=== PATIENT | female | born 1950 | race Caucasian/White ===

== ENCOUNTER 2018-09-08 15:53 | Inpatient (IN) | payer MEDICARE, MEDICAID ==
[~2018-09-08] VITALS: Ht 157.5 cm; Wt 96.6 kg
[2018-09-08 17:51] LABS: BASOPHILS % 0.8 % (0.0-2.0); EOSINOPHILS % 2.1 % (0.0-5.0); HEMATOCRIT. 25.1 % (36.0-48.0); HEMOGLOBIN. 7.7 g/dL (12.0-16.0); LYMPHOCYTES % 25.9 % (20.0-50.0); MEAN CORPUSCULAR HEMOGLOBIN 25.1 pg (28.0-32.0); MEAN CORPUSCULAR VOLUME 81.7 fL (81.0-99.0); MEAN PLATELET VOLUME 7.5 fl (7.4-10.4); NEUTROPHILS % 59.2 % (40.0-76.0); PLATELET 450 x1000/uL (130-400); RED BLOOD CELL COUNT 3.07 mill/uL (4.2-5.4); RED CELL DISTRIBUTION WIDTH 17.2 % (11.6-14.6)
[2018-09-08 17:54] LABS: CHLORIDE 103 mEq/L (98-107)
[2018-09-08 17:57] LABS: INR 1.1; PROTHROMBIN TIME 11.1 sec (9.1-11.1)
[2018-09-08] MEDS ORDERED: FUROSEMIDE 40MG/4ML VIAL IVP ONE (18:30)
[2018-09-08 22:13] VITALS: BP 136/76
[2018-09-08] MEDS ORDERED: LAMO200T50 MT (22:47)
[2018-09-09] VITALS: BP 119/64
[2018-09-09] MEDS ORDERED: DEXTROSE 50% WATER 50ML SYRINGE IV PRN
[2018-09-09] MEDS ORDERED: CLONIDINE 0.1MG TABLET PO PRN (00:15)
[2018-09-09] MEDS ORDERED: HYDROCODONE/ACETAMINOPHEN 5/325MG TABLET PO PRN (00:15)
[2018-09-09] MEDS ORDERED: ACETAMINOPHEN 325MG TABLET PO PRN (00:15)
[2018-09-09] MEDS ORDERED: ONDANSETRON HCL 4MG/2ML INJ IV PRN (00:15)
[2018-09-09] MEDS ORDERED: MAGN400C PO (00:42)
[2018-09-09] MEDS ORDERED: ATOR10TA69 MT (00:42)
[2018-09-09] MEDS ORDERED: DILT60TA35 PO (00:42)
[2018-09-09] MEDS ORDERED: METF-815 PO (00:42)
[2018-09-09] MEDS ORDERED: LORA-250 MT (00:42)
[2018-09-09] MEDS ORDERED: MEDICATION NOT ON FORMULARY EA (Lorazepam (Ativan) 1 TAB) MT PRN (00:45)
[2018-09-09] MEDS: LORAZEPAM 1MG TABLET PO PRN ×3 (01:15→21:30)
[2018-09-09] MEDS ORDERED: LAMO200T MT (01:24)
[2018-09-09] MEDS: LAMOTRIGINE 100MG TABLET PO SCH ×2 (02:13→21:30)
[2018-09-09 04:00] VITALS: BP 135/72
[2018-09-09] MEDS: BLOOD SUGAR DIAGNOSTIC STRIP TEST SCH ×4 (07:10→21:31)
[2018-09-09] MEDS: INSULIN LISPRO 100 UNITS/ML SUBCUT SCH ×4 (07:40→21:00)
[2018-09-09 07:44] LABS: EOSINOPHILS % 3.1 % (0.0-5.0); HEMOGLOBIN. 8.1 g/dL (12.0-16.0); LYMPHOCYTES % 18.7 % (20.0-50.0); MEAN CORPUSCULAR HEMOGLOBIN 25.4 pg (28.0-32.0); MEAN CORPUSCULAR VOLUME 81.4 fL (81.0-99.0); MEAN PLATELET VOLUME 7.7 fl (7.4-10.4); MONOCYTES % 10.8 % (2.0-8.0); NEUTROPHILS % 66.4 % (40.0-76.0); PLATELET 441 x1000/uL (130-400); RED CELL DISTRIBUTION WIDTH 17.1 % (11.6-14.6)
[2018-09-09 08:00] VITALS: BP 150/87
[2018-09-09] MEDS: FUROSEMIDE 40MG/4ML VIAL IVP SCH (09:00)
[2018-09-09 12:00] VITALS: BP 139/71
[2018-09-09 16:00] VITALS: BP 145/86
[2018-09-09] MEDS: FLUTICASONE PROPIONATE 50MCG/SPRAY BOTTLE BOTHNSTRLS SCH (17:56)
[2018-09-09 20:00] VITALS: BP 143/83
[2018-09-09] MEDS ORDERED: MEDICATION NOT ON FORMULARY EA (Lamotrigine 1 TAB) MT SCH ×2 (21:00)
[2018-09-09] MEDS: ATORVASTATIN CALCIUM 20MG TABLET PO SCH (21:30)
[2018-09-10] VITALS: BP 151/92
[2018-09-10 04:00] VITALS: BP 143/93
[2018-09-10 06:25] LABS: BASOPHILS % 0.8 % (0.0-2.0); EOSINOPHILS % 2.8 % (0.0-5.0); HEMATOCRIT. 27.1 % (36.0-48.0); HEMOGLOBIN. 8.4 g/dL (12.0-16.0); LYMPHOCYTES % 16.7 % (20.0-50.0); MEAN CORPUSCULAR HEMOGLOBIN 25.1 pg (28.0-32.0); MEAN CORPUSCULAR VOLUME 81.2 fL (81.0-99.0); MONOCYTES % 10.7 % (2.0-8.0); PLATELET 483 x1000/uL (130-400); RED BLOOD CELL COUNT 3.34 mill/uL (4.2-5.4); RED CELL DISTRIBUTION WIDTH 17.3 % (11.6-14.6)
[2018-09-10] MEDS: BLOOD SUGAR DIAGNOSTIC STRIP TEST SCH ×4 (06:39→21:51)
[2018-09-10] MEDS: INSULIN LISPRO 100 UNITS/ML SUBCUT SCH ×4 (06:39→21:51)
[2018-09-10 08:00] VITALS: BP 159/104
[2018-09-10] MEDS: FUROSEMIDE 40MG/4ML VIAL IVP SCH (09:00)
[2018-09-10] MEDS: FLUTICASONE PROPIONATE 50MCG/SPRAY BOTTLE BOTHNSTRLS SCH (09:20)
[2018-09-10] MEDS: LORAZEPAM 1MG TABLET PO PRN ×2 (09:21→21:43)
[2018-09-10 11:48] VITALS: BP 151/89
[2018-09-10 16:00] VITALS: BP 151/86
[2018-09-10] MEDS: LISINOPRIL 5MG TABLET PO SCH (17:40)
[2018-09-10 20:00] VITALS: BP 141/80
[2018-09-10] MEDS: ATORVASTATIN CALCIUM 20MG TABLET PO SCH (21:34)
[2018-09-10] MEDS: LAMOTRIGINE 100MG TABLET PO SCH (21:34)
[2018-09-10] MEDS: CARVEDILOL 3.125 MG TABLET PO SCH (21:35)
[2018-09-11] VITALS: BP 130/74
[2018-09-11 04:00] VITALS: BP 142/90
[2018-09-11] MEDS: INSULIN LISPRO 100 UNITS/ML SUBCUT SCH ×2 (07:21→11:55)
[2018-09-11] MEDS: BLOOD SUGAR DIAGNOSTIC STRIP TEST SCH ×2 (07:21→11:55)
[2018-09-11 08:00] VITALS: BP 139/82
[2018-09-11] MEDS: FUROSEMIDE 40MG/4ML VIAL IVP SCH (09:00)
[2018-09-11] MEDS: FLUTICASONE PROPIONATE 50MCG/SPRAY BOTTLE BOTHNSTRLS SCH (09:34)
[2018-09-11] MEDS: CARVEDILOL 3.125 MG TABLET PO SCH (09:34)
[2018-09-11] MEDS: LISINOPRIL 5MG TABLET PO SCH (09:35)
[2018-09-11] MEDS ORDERED: AMLODIPINE 2.5MG TABLET PO SCH (10:00)
[2018-09-11 11:36] LABS: BASOPHILS % 0.7 % (0.0-2.0); EOSINOPHILS % 3.4 % (0.0-5.0); HEMATOCRIT. 25.9 % (36.0-48.0); HEMOGLOBIN. 7.9 g/dL (12.0-16.0); MEAN CORPUSCULAR HEMOGLOBIN 24.8 pg (28.0-32.0); MEAN CORPUSCULAR VOLUME 80.9 fL (81.0-99.0); MEAN PLATELET VOLUME 7.4 fl (7.4-10.4); MONOCYTES % 11.5 % (2.0-8.0); NEUTROPHILS % 67.4 % (40.0-76.0); PLATELET 392 x1000/uL (130-400); RED CELL DISTRIBUTION WIDTH 17.1 % (11.6-14.6)
[2018-09-11 11:56] VITALS: BP 114/65
[2018-09-11 15:59] VITALS: BP 134/66
[2018-09-11 16:00] VITALS: BP 134/66
[2018-09-12] MEDS ORDERED: AMLODIPINE 2.5MG TABLET PO SCH (09:00)
== END 2018-09-11 16:45 | disposition home or self-care (01) | DRG 291 ==
LOC: ER 18:09 → 8WST 18:49 → EDBEDREQ 18:53 → ENRESERV 21:23
PROVIDERS: ADMIT Internal Medicine; ATTEND Internal Medicine
DX: I11.0 Hypertensive heart disease with heart failure (principal); J96.00 Acute respiratory failure, unspecified whether with hypoxia or hypercapnia; D50.9 Iron deficiency anemia, unspecified; D63.8 Anemia in other chronic diseases classified elsewhere; E11.9 Type 2 diabetes mellitus without complications; E78.00 Pure hypercholesterolemia, unspecified; E78.5 Hyperlipidemia, unspecified; G89.29 Other chronic pain; M54.5 Low back pain; I25.10 Atherosclerotic heart disease of native coronary artery without angina pectoris; I34.0 Nonrheumatic mitral (valve) insufficiency; I45.81 Long QT syndrome; J45.909 Unspecified asthma, uncomplicated; I50.23 Acute on chronic systolic (congestive) heart failure; Z79.899 Other long term (current) drug therapy; Z87.01 Personal history of pneumonia (recurrent)
CPT/HCPCS: 36415; 71045; 72148; 80048; 82270; 82728; 82962; 83036; 83540; 83550; 83605; 83880; 84484; 86850; 86900; 86920; 87804; 93005; 93306; 96374; 99285; J1815; J1940